=== PATIENT | female | born 1980 | race Caucasian/White ===

== ENCOUNTER 2017-06-20 00:34 | Emergency (ER) | payer MEDICAID ==
[~2017-06-20] VITALS: Ht 170.2 cm; Wt 114.0 kg
[2017-06-20] MEDS ORDERED: IBUPROFEN 600MG TABLET PO ONE (05:15)
[2017-06-20 05:18] LABS: CLARITY URINE TURBID (CLEAR); COLOR URINE YELLOW (YELLOW); KETONES URINE NEGATIVE (NEGATIVE); LEUKOCYTE ESTERASE URINE NEGATIVE (NEGATIVE); NITRITE URINE NEGATIVE (NEGATIVE); OCCULT BLOOD URINE NEGATIVE (NEGATIVE); PH URINE 7.5 (4.5-8.0); PROTEIN URINE NEGATIVE (NEGATIVE); SPECIFIC GRAVITY URINE 1.021 (1.005-1.030)
[2017-06-20 05:25] VITALS: BP 118/72
[2017-06-20] MEDS ORDERED: CYCLOBENZAPRINE 10MG TABLET PO ONE (06:45)
== END 2017-06-20 07:01 | disposition home or self-care (01) ==
LOC: ER 01:29
DX: N39.0 Urinary tract infection, site not specified (principal); I10 Essential (primary) hypertension; F17.200 Nicotine dependence, unspecified, uncomplicated; F12.10 Cannabis abuse, uncomplicated
CPT/HCPCS: 81003; 81025; 87077; 87086; 99284